=== PATIENT | female | born 1950 | race Caucasian/White ===

== ENCOUNTER 2020-10-21 19:40 | Emergency (ER) | payer OTHER, MEDICARE ==
[2020-10-21] MEDS ORDERED: Acetaminophen 500 MG TAB ONE (20:27)
== END 2020-10-21 21:21 | disposition home or self-care (01) ==
LOC: CSHERS 19:40
DX: S06.0X0A Concussion without loss of consciousness, initial encounter (principal); E03.9 Hypothyroidism, unspecified; Z79.899 Other long term (current) drug therapy; W01.0XXA Fall on same level from slipping, tripping and stumbling without subsequent striking against object, initial encounter
CPT/HCPCS: 70450

== ENCOUNTER 2021-12-09 09:21 | Outpatient (CLI) | payer MEDICARE, OTHER | END 2021-12-09 09:22 | disposition home or self-care (01) | LOC: CSHMAMMO 09:21 | PROVIDERS: ATTEND Family Medicine | DX: Z12.31 Encounter for screening mammogram for malignant neoplasm of breast (principal) | CPT/HCPCS: 77063; 77067 ==

== ENCOUNTER 2022-05-09 08:44 | Emergency (ER) | payer MEDICARE, OTHER ==
[2022-05-09] MEDS ORDERED: Ketorolac Tromethamine 30 MG/ML VIAL ONE (12:28)
== END 2022-05-09 12:35 | disposition home or self-care (01) ==
LOC: CSHERS 08:44
DX: S22.32XA Fracture of one rib, left side, initial encounter for closed fracture (principal); S20.02XA Contusion of left breast, initial encounter; W18.30XA Fall on same level, unspecified, initial encounter
CPT/HCPCS: 71045; 96372; J1885

== ENCOUNTER 2022-09-21 13:09 | Emergency (ER) | payer MEDICARE, OTHER ==
[2022-09-21] MEDS ORDERED: Morphine 4 MG/ML VIAL ONE (14:46)
[2022-09-21] MEDS ORDERED: Ondansetron PF 4 MG/2 ML Vial ONE (14:46)
== END 2022-09-21 15:35 | disposition home or self-care (01) ==
LOC: CSHERS 13:09
DX: S00.03XA Contusion of scalp, initial encounter (principal); E03.9 Hypothyroidism, unspecified; W18.30XA Fall on same level, unspecified, initial encounter; Y93.89 Activity, other specified
CPT/HCPCS: 70450; 72125; 96374; 96375; J2270; J2405